=== PATIENT | female | born 1950 | race Caucasian/White ===

== ENCOUNTER → 2021-06-27 14:26 | Outpatient (CLI) | payer MEDICARE, SELFPAY ==
--- NOTE | ~2021-06-27 | CT_ITS ---
EXAMINATION: CT abdomen pelvis wo con DATE: 06/27/2021 14:50 INDICATION: TECHNIQUE: Computed tomography (CT) of the abdomen and pelvis was performed without intravenous contr ast. Automated exposure control and iterative reconstruction technique were employed. Exam dose: 847 .93 mGy-cm total exam DLP. COMPARISON: None. FINDINGS: The lung bases are clear. No pericardial or pleural effusion. Hepatic steatosis. The liver, gallbladder, bile duct, pancreas and pancreatic duct are otherwise unre markable. There are multiple splenic calcified granulomas. No splenomegaly. Stable approximately 11 m m heavily calcified splenic artery aneurysm. Normal morphology of the adrenal glands. 12 mm lower pole right renal cyst.. No urinary tract calculus or hydroureteronephrosis. There is atherosclerotic calcification of the abdominal aorta and iliac arteries and prominent calcif ication of the proximal renal arteries. No abdominal aortic aneurysm. The urinary bladder, uterus and adnexal areas are unremarkable. No intraperitoneal or retroperitoneal or pelvic mass lesion or adenopathy or ascites. There are numerous diverticula of the left colon; no CT evidence of diverticulitis. No bowel obstruct ion or intraperitoneal free air is detected. Bilateral fat-containing inguinal hernias. Small fat-containing umbilical hernia. Severe degenerative disease at L2-3. Degenerative change at the apophyseal joints of the lumbar and l umbosacral spine. No suspicious osteolytic or osteoblastic lesions are noted. IMPRESSION: Diverticulosis of the left colon; no CT evidence of diverticulitis 12 mm lower pole right renal cyst Hepatic steatosis. Reviewed, dictated and finalized at [facility]. Reviewed, dictated and finalized at location A.
== END ==
PROVIDERS: PCP Family Medicine; Visit Provider Family Medicine
DX: I72.8 Aneurysm of other specified arteries (principal); K57.30 Diverticulosis of large intestine without perforation or abscess without bleeding; N28.1 Cyst of kidney, acquired; K76.0 Fatty (change of) liver, not elsewhere classified
CPT/HCPCS: 74176

== ENCOUNTER → 2021-07-21 13:53 | Outpatient (CLI) | payer MEDICARE, SELFPAY ==
--- NOTE | ~2021-07-21 | MR_ITS ---
EXAMINATION: MR lumbar spine wo con EXAM DATE: 07/21/2021 14:56 INDICATION: R29.898 - Other symptoms and signs involving the musculos... . Low back pain. TECHNIQUE: Multi-sequential, multiplanar MR images of the lumbar spine were obtained without contrast . Sagittal T1, T2, T2 fat saturation images. Axial T2 weighted images. Comparison is made to prior examination from 08/06/2012. FINDINGS: There is moderate disc disease T10-L2, mild at the levels below. 2 mm retrolisthesis L2 on L3 and L1 on L2. The vertebral bodies are otherwise aligned. Mild lumbar levoscoliosis. There are no suspicious marrow signal abnormalities. Paraspinal soft tissue is unremarkable. The conus medullaris terminates at the L1/2 level and has normal signal intensity and morphology. Level by level evaluation: T12-L1: There is a minimal diffuse disc bulge. Facet arthropathy: None. Neural foraminal stenosis: No stenosis. Central canal stenosis: No stenosis. L1-L2: There is a minimal diffuse disc bulge. Facet arthropathy: Mild. Neural foraminal stenosis: No stenosis. Central canal stenosis: No stenosis. L2-L3: There is a mild to moderate diffuse disc bulge. Facet arthropathy: Mild to moderate. Neural foraminal stenosis: Mild to moderate right, mild left. Central canal stenosis: Mild. L3-L4: There is a mild diffuse disc bulge. Facet arthropathy: Moderate. Neural foraminal stenosis: Minimal bilateral. Central canal stenosis: Mild. L4-L5: There is a mild diffuse disc bulge. Facet arthropathy: Moderate left, mild to moderate right. Neural foraminal stenosis: Mild to moderate left, mild right. Central canal stenosis: Mild. L5-S1: There is a mild diffuse disc bulge. Facet arthropathy: Moderate to severe left, moderate right. Neural foraminal stenosis: Minimal left. Central canal stenosis: No stenosis. IMPRESSION: Overall moderate lumbar spondylosis, progression compared to 2012. Reviewed, dictated and finalized at location A. IMPRESSION: Overall moderate lumbar spondylosis, progression compared to 2013.
== END ==
PROVIDERS: PCP Family Medicine; Visit Provider Family Medicine
DX: R29.898 Other symptoms and signs involving the musculoskeletal system (principal); M47.896 Other spondylosis, lumbar region
CPT/HCPCS: 72148

== ENCOUNTER → 2021-08-22 13:27 | Outpatient (CLI) | payer MEDICARE, SELFPAY ==
--- NOTE | ~2021-08-22 | MM_ITS ---
EXAMINATION: MM screening chelsy BI w adwoa HISTORY: Screening TECHNIQUE: Craniocaudal and mediolateral oblique 3-D tomosynthesis images were obtained and synthetic 2-D images were generated. CAD analysis was submitted and interpreted. COMPARISON: 08/05/2014 BREAST PARENCHYMAL COMPOSITION: Breast composed of scattered areas of fibroglandular density FINDINGS: There is no evidence of suspicious mass, calcification, or architectural distortion to sugg est malignancy in either breast. There has been no suspicious interval change. IMPRESSION: 1. No mammographic evidence of malignancy. 2. Recommend routine screening mammography in one year. BI-RADS Category 1: Negative Reviewed, dictated and finalized at location A.
== END ==
PROVIDERS: PCP Family Medicine; Visit Provider Family Medicine
DX: Z12.31 Encounter for screening mammogram for malignant neoplasm of breast (principal)
CPT/HCPCS: 77063; 77067

== ENCOUNTER → 2021-09-19 13:35 | Outpatient (CLI) | payer MEDICARE, SELFPAY ==
--- NOTE | ~2021-09-19 | DEXA_ITS ---
Bone Density Report Name: GUANAKITO SOLIS Age: 71 Sex: Female Ethnicity: White Date of : 1950 Indication: postmenopausal; screening for osteoporosis; Referring Provider: MELIDA HAWTHORNE Study: Bone densitometry was performed. Exam Date: September 19, 2021 Accession number: [id number] Bone Density: Region BMD T-score Z-score Classification AP Spine (L1-L4) 1.117 0.6 2.9 Normal Femoral Neck (Left) 0.684 -1.5 0.5 Osteopenia Total Hip (Left) 0.849 -0.8 0.9 Normal Femoral Neck (Right) 0.705 -1.3 0.7 Osteopenia Total Hip (Right) 0.871 -0.6 1.1 Normal Total Hip Mean 0.860 -0.7 1.0 Normal World Health Organization criteria for BMD impression classify patients as: Normal (T-score at or above -1.0), Osteopenia (T-score between -1.0 and -2.5), or Osteoporosis (T-score at or below -2.5). 10-year Fracture Risk(1): Major Osteoporotic Fracture 10% Hip Fracture 1.6% Reported Risk Factors: [place] (), Neck BMD=0.684, BMI=30.7 (1) FRAX(R) Version 3.08. Fracture probability calculated for an untreated patient. Fracture probability may be lower if the patient has received treatment. Previous Exams: Region Exam Age BMD T-score BMD Change BMD Change Date g/cm2 vs Baseline vs Previous AP Spine(L1-L4) 09/19/2021 71 1.117 0.6 0.101 0.070 08/05/2014 64 1.047 0.0 0.031* 0.031* 09/26/2006 56 1.016 -0.3 Total Hip(Left) 09/19/2021 71 0.849 -0.8 0.000 -0.003 08/05/2014 64 0.852 -0.7 0.003 0.003 09/26/2006 56 0.849 -0.8 Total Hip(Right) 09/19/2021 71 0.871 -0.6 -0.017 -0.023 08/05/2014 64 0.894 -0.4 0.007 0.007 09/26/2006 56 0.887 -0.4 *Denotes significance at 95% confidence level, LSC for AP Spine = 0.022 g/cm2, LSC for Total Hip = 0.027 g/cm2 Clinical Information Provided by Patient: Patient maximum height was 63.2 Menopause Age: 50 No regular weight bearing exercise Does not regularly consume dairy products Drinks caffeinated beverages Onset of menses at age 11 Number of children 3 Impression: The patient has low bone mass, based on the Left Femoral Neck T-score. The patient has an estimated ten-year risk of hip fracture of 1.6% and an estimated ten-year risk of major fracture of 10%, based on the WHO FRAX algorithm. No significant bone loss was observed. Discussion: BONE DENS
== END ==
PROVIDERS: PCP Family Medicine; Visit Provider Family Medicine
DX: Z78.0 Asymptomatic menopausal state (principal); M85.851 Other specified disorders of bone density and structure, right thigh; M85.852 Other specified disorders of bone density and structure, left thigh
CPT/HCPCS: 77080

== ENCOUNTER → 2021-12-13 13:55 | Outpatient (CLI) | payer MEDICARE, SELFPAY ==
--- NOTE | ~2021-12-13 | XR_ITS ---
XR foot LT min 3V DATE: 12/13/2021 14:54 INDICATION: Left foot pain TECHNIQUE: 4 views COMPARISON: None FINDINGS: Moderate plantar calcaneal enthesopathy. Slight posterior calcaneal enthesopathy. No fracture or dislocation, periosteal reaction or bone destruction is detected. Osteopenia. IMPRESSION: Calcaneal enthesopathy Osteopenia Reviewed, dictated and finalized at location B.
--- NOTE | ~2021-12-13 | XR_ITS ---
XR foot RT min 3V DATE: 12/13/2021 14:54 INDICATION: Right foot pain TECHNIQUE: 4 views COMPARISON: None FINDINGS: There is plantar calcaneal enthesopathy. Osteopenia. Mild osteoarthritis at the first metat arsophalangeal joint. No fracture or dislocation, periosteal reaction or bone destruction is detected . Anterior tibial artery calcification. IMPRESSION: Plantar calcaneal enthesopathy Mild osteoarthritis at first metatarsophalangeal joint Osteopenia Reviewed, dictated and finalized at location B.
--- NOTE | ~2021-12-13 | XR_ITS ---
XR hand BI arthritis min 3V DATE: 12/13/2021 14:55 INDICATION: Bilateral hand pain. Joint pain. Myalgia. TECHNIQUE: 4 views of each hand COMPARISON: None FINDINGS: Right hand: Polyarticular osteoarthritis is noted including joint space narrowing at the triscaphe joint, mild os teoarthritis at the first carpometacarpal, metacarpophalangeal and particularly the interphalangeal j oints, most severe at the distal interphalangeal joint of the second digit where there is virtual obl iteration of joint space and very prominent particular spurring. No fracture or dislocation, periosteal reaction or bone destruction, erosive change or chondrocalcino sis. Left hand: There is narrowing at the triscaphe joint and mild osteophyte is at the first carpometacar pal joint. There is narrowing at the carpophalangeal and interphalangeal joints with periarticular sp urring phalangeal joints, particularly the distal interphalangeal joints. No fracture or dislocation, periosteal reaction or bone destruction of the left hand. No erosive [place] ge or chondrocalcinosis. IMPRESSION: Prominent polyarticular osteoarthritis of the hands Reviewed, dictated and finalized at location B.
== END ==
PROVIDERS: PCP Family Medicine; Visit Provider Internal Medicine Rheumatology
DX: M79.10 Myalgia, unspecified site (principal); M25.50 Pain in unspecified joint
CPT/HCPCS: 73130; 73630

== ENCOUNTER → 2022-02-03 14:09 | Outpatient (CLI) | payer MEDICARE, SELFPAY ==
--- NOTE | ~2022-02-03 | MR_ITS ---
EXAMINATION: MR brain/brain stem wo con DATE: 02/03/2022 14:49 INDICATION: Unsteady gait. Fall. TECHNIQUE: Magnetic resonance imaging (MRI) of the brain and brainstem was performed without intraven ous contrast. COMPARISON: Brain MRI 11/15/2015 FINDINGS: There are scattered areas of nonspecific increased T2-weighted signal intensity in the cere bral white matter, which is within normal limits for the patient's age. There is no intracranial hemo rrhage, acute infarction, or abnormal intracranial mass lesion. The ventricles are normal in size. Th ere are likely changes of ocular lens replacement surgeries. The paranasal sinuses are clear. The mas toid air cells are normal. IMPRESSION: 1. Normal aging brain. Reviewed, dictated and finalized at location A. IMPRESSION: 1. Normal aging brain.
== END ==
PROVIDERS: PCP Family Medicine; Visit Provider Family Medicine
DX: G51.8 Other disorders of facial nerve (principal)
CPT/HCPCS: 70551

== ENCOUNTER 2022-12-19 14:19 | Emergency (ER) | payer MEDICARE, SELFPAY ==
--- NOTE | ~2022-12-19 | CT_ITS ---
EXAMINATION: CT abdomen pelvis w con DATE: 12/19/2022 21:02 INDICATION: abdominal pain TECHNIQUE: Computed tomography (CT) of the abdomen and pelvis was performed with 100 mL Omnipaque-350 intravenous contrast. Automated exposure control and iterative reconstruction technique were employe d. The dose-length product was 482.87 mGy-cm. COMPARISON: 06/27/2021. FINDINGS: Lower thorax: Small hiatal hernia. Liver: Normal. Biliary/Gallbladder: Gallbladder is normal. No bile duct dilation. Pancreas: Pancreatic atrophy. Spleen: Calcified granulomas. Adrenals:No mass. Kidneys: Right inferior pole simple cyst. Bilateral cortical scarring. No suspicious mass, stone, or hydronephrosis. GI tract: Mild distal esophageal and gastric wall edema. No small or large bowel dilation. Appendix n ot confidently visualized. Diverticulosis without diverticulitis. Mesentery/Peritoneum: No ascites, mass, or free air. Retroperitoneum: No mass. Atherosclerotic abdominal aortic and/or arterial calcifications. Stable jose cified 12 mm splenic artery aneurysm. Pelvis: Pelvic organs are within normal limits. Soft Tissues: Soft tissues and body wall unremarkable. Bones: No acute osseous finding. IMPRESSION: Mild esophagitis/gastritis. Otherwise, no acute abdominal pelvic process detected. Reviewed, dictated and finalized at location K. IMPRESSION: Mild esophagitis/gastritis. Otherwise, no acute abdominal pelvic process detect ed.
[2022-12-19 14:31] VITALS: BP 148/72; PULSE 77; RESP 12; TEMP 36.3; O2SAT 98
[2022-12-19 14:49] LABS: Basophils Percent Auto 0.1 % (0.2-1.2); Eosinophils Percent Auto 0.1 % (0-4.4); Hematocrit 34.4 % (37.0-47.0); Hemoglobin 11.7 g/dL (12.0-15.0); Immature Granulocyte Absolute 0.11 K/mm3 (0.00-0.031); Lymphocytes Absolute Auto 1.24 K/mm3 (0.9-3.2); Lymphocytes Percent Auto 11.8 % (18.3-44.2); Mean Corpuscular Hemoglobin 31.7 pg (26-34); Mean Corpuscular Volume 93.2 fl (80-100); Mean Platelet Volume 10.2 fl (7.4-10.4); Monocytes Absolute Auto 0.2 K/mm3 (0.1-0.6); Neutrophils Absolute Auto 8.9 K/mm3 (1.3-6.7); Platelet Count Result 193 k/mm3 (150-375); Red Blood Count 3.69 M/mm3 (4.2-5.4); Red Cell Distribution Width 12.9 % (11.5-14.5); White Blood Count 10.5 K/mm3 (4.5-10.0)
[2022-12-19 15:01] LABS: Alanine Aminotransferase 18 U/L (6-35); Albumin Level 3.9 g/dL (3.5-5.1); Alkaline Phosphatase 46 U/L (38-126); Anion Gap 9 mmol/L (8-16); Aspartate Amino Transferase 21 U/L (14-36); Bilirubin,Total 1.2 mg/dL (0.2-1.3); Blood Urea Nitrogen 18 mg/dL (7-17); Calcium 8.6 mg/dL (8.4-10.2); Carbon Dioxide 28 mmol/L (22-30); Chloride 98 mmol/L (98-107); Estimated CRCL calculation 42 ml/min; Estimated Glomerular Filt Rate 54; Glucose 243 mg/dL (65-110); Lipase 226 U/L (23-300); Potassium 3.7 mmol/L (3.4-5.0); Sodium 135 mmol/L (137-145)
[2022-12-19 18:27] VITALS: BP 147/68; PULSE 67; RESP 14; O2SAT 99
--- NOTE | 2022-12-19 18:41 | PC.NURSE ---
Patient called to place into exam room without response x 2. Not seen in the waiting room. Assumed to have left the ER without being seen and without notifying the staff.
[2022-12-19 19:33] VITALS: BP 230/83; PULSE 67; RESP 15; TEMP 36.9; O2SAT 100
[2022-12-19 20:20] LABS: Appearance Urine Clear (Clear); Bilirubin Urine Negative (Negative); Blood Urine Negative (Negative); Color Urine Yellow (Yellow); Glucose Urine UA Trace mg/dL (Negative); Ketones Urine Negative (Negative); Leukocyte Esterase Ur Negative LEU/UL (Negative); Nitrate Urine Negative (Negative); Protein Urine Negative (Negative); Specific Grav Ur 1.012 (1.001-1.035); Urobilinogen Urine 0.2 mg/dL (<2.0)
[2022-12-19 20:39] LABS: Add Urine Microscopic? NO
--- NOTE | 2022-12-19 21:24 | ED.GENADULT ---
HPI - General Adult General Chief complaint: Nausea/Vomiting/Diarrhea Stated complaint: DIARRHEA FOR FEW WEEKS Time Seen by Provider: 12/19/22 19:29 History of Present Illness HPI narrative: 72-year-old female with history of diarrhea for the last 3 months presents to the emergency department for evaluation of persistent diarrhea. Patient denies any associate abdominal pain. Patient states that while she has had frequent diarrhea she has not had diarrhea in the last 3 days. Patient denies any associated nausea or vomiting. Patient reports he does have pending follow-up with GI. Related Data Home Medications Medication Instructions Recorded Confirmed multivitamin (Daily Multi-Vitamin 1 tablet PO DAILY 02/26/20 12/07/22 tablet) cholecalciferol (vitamin D3) 50 50 mcg PO DAILY 05/19/22 12/07/22 mcg (2,000 unit) capsule mecobalamin (vitamin B12) 1,000 1,000 mcg PO DAILY 11/24/22 12/07/22 mcg chewable tablet ezetimibe 10 mg tablet 10 mg PO DAILY 12/07/22 12/07/22 Allergies Allergy/AdvReac Type Severity Reaction Status Date / Time adhesive Allergy Unknown Unknown Verified 12/07/22 13:14 aspartame Allergy Unknown Unknown Verified 12/07/22 13:14 aspirin Allergy Unknown Unknown Verified 12/07/22 13:14 atorvastatin Allergy Unknown urinary Verified 12/07/22 13:14 retention, muscle cramps gluten Allergy Unknown Unknown Verified 12/07/22 13:14 lactase Allergy Unknown Nausea Verified 12/07/22 13:14 lactose Allergy Unknown Nausea Verified 12/07/22 13:14 lisinopril Allergy Unknown decreased Verified 12/07/22 13:14 urine output pravastatin AdvReac Severe aches Verified 12/07/22 13:14 cephalexin AdvReac Intermediate Diarrhea Verified 12/07/22 13:14 vaccine adjuvant emulsion AdvReac Mild severe Verified 12/07/22 13:14 [id number] myalgias, [From Fluad [id number] (65 yr arthralgias, up)(PF)] fever, rigors Review of Systems Review of Systems: All systems reviewed & are unremarkable except as noted in HPI and below PMFSH Past Medical History Medical History Acute appendicitis Chronic pruritus Ganglion, right ankle and foot Family History Family History Father Acute myocardial infarction, Onset Age: 70 Other Diabetes mellitus Family history of cardiovascular disease Social History Social History (Updated 12/07/22 @ 13:16 by Myla Almanzar MA) Smoking packs per day: 0.1 Smoking cigarettes per day: 2.0 Years smoked: 25 Smoking pack-years: 2.50 Smoking status: Former smoker Tobacco type: cigarettes Alcohol intake: current Lack of Transportation: No Lack of Food: Never True Current Housing: I Have Housing Concerned About Future Housing: No Difficulty Paying Gas/Electric Bills: No Difficulty Paying for Meds: No Currently Unemployed: No Education: High School Diploma/GED Difficulty w/ Childcare or Family Care: No Exam Narrative: APPEARANCE: Well appearing, no pain, no distress, well-nourished. HEAD: normocephalic, atraumatic. EYES: PERRLA/EOMI, conjunctivae clear. NOSE: Normal no drainage NECK: Supple. No adenopathy, no masses. RESPIRATORY: Airway patent, respirations nonlabored. Clear to auscultation bilaterally, no rales, rhonchi, wheezing. CARDIOVASCULAR: Regular rate and rhythm without murmurs rubs or gallops. ABDOMINAL: Soft, nontender, nondistended, normal bowel sounds MUSCULOSKELETAL: Moves all extremities. Strength/ROM intact, No edema, No calf tenderness. NEURO: Alert. Cranial nerves II through XII intact. Grossly intact SKIN: Warm, dry. Normal Color Course Course Emergency Course: 72-year-old female present emergency department for evaluation of persistent diarrhea over the last 3 months. Patient was afebrile with a minor leukocytosis of 10.5. Patient's hemoglobin is stable. Patient had elevate
[2022-12-19 21:26] VITALS: BP 220/81; PULSE 68; RESP 15; O2SAT 98
[2022-12-19] MEDS: hydrALAZINE HCL 20 MG/ML VIAL 10 MG IV PUSH (21:30)
[2022-12-19 22:16] VITALS: BP 177/70; PULSE 69; O2SAT 98
[2022-12-19 23:39] VITALS: BP 212/69; PULSE 73; RESP 13; O2SAT 99
== END 2022-12-20 00:05 | disposition home or self-care (01) ==
PROVIDERS: Emergency Provider Emergency Medicine; PCP Family Medicine
DX: R19.7 Diarrhea, unspecified (principal); Z87.891 Personal history of nicotine dependence
CPT/HCPCS: 36415; 74177; 80053; 81003; 83690; 85025; 96374; 99284; J0360; Q9967

== ENCOUNTER 2023-01-10 11:09 | Outpatient (NON) | payer MEDICARE, SELFPAY ==
[2023-01-10 20:19] LABS: IFOB Positive Control Positive; Immunochemical Fecal Occult Bl Negative (N)
== END 2023-01-10 11:10 | disposition home or self-care (01) ==
LOC: ANHGOSHLAB 11:10
PROVIDERS: PCP Family Medicine; Visit Provider Physician Assistant
DX: R19.7 Diarrhea, unspecified (principal)
CPT/HCPCS: 82274

== ENCOUNTER 2023-01-22 13:48 | Outpatient (CLI) | payer MEDICARE, SELFPAY ==
--- NOTE | ~2023-01-22 | US_ITS ---
EXAMINATION:US venous doppler LE BI INDICATION:Abnormal laboratory studies. TECHNIQUE: Multiple grayscale, color flow and Doppler images of the right and left lower extremity de ep venous systems were obtained and reviewed. COMPARISON:No prior studies for comparison. FINDINGS: The common femoral, superficial femoral and popliteal veins demonstrate normal respiratory variation, augmentation and compressibility. Color flow is also seen within the posterior tibial, pe roneal, greater saphenous and profunda veins. IMPRESSION: 1: No lower extremity deep venous thrombosis. Reviewed, dictated and finalized at location B.
== END 2023-01-22 13:49 | disposition home or self-care (01) ==
PROVIDERS: PCP Family Medicine; Visit Provider Physician Assistant
DX: R79.89 Other specified abnormal findings of blood chemistry (principal)
CPT/HCPCS: 93970

== ENCOUNTER 2023-02-15 11:31 | Outpatient (RCR) | payer MEDICARE, SELFPAY | END 2023-05-16 23:59 | disposition home or self-care (01) | LOC: ANHAUDASC 11:31 | PROVIDERS: PCP Family Medicine; Visit Provider Family Medicine | DX: Z46.1 Encounter for fitting and adjustment of hearing aid (principal) | CPT/HCPCS: 92593 ==

== ENCOUNTER 2024-01-02 13:30 | Outpatient (CLI) | payer MEDICARE, SELFPAY ==
--- NOTE | 2024-01-02 13:42 | ECHO_ITS ---
Patient Info Name: Savana Motta Age: 73 years : 1950 Gender: Female Ht: 62 in Wt: 192 lbs BSA: 1.99 m2 HR: 57 bpm BP: 169 / 74 mmHg Technical Quality: Fair Exam Date: 01/02/2024 2:01 PM Exam Location: Echo Lab Patient Status: Outpatient Admit Date: 01/02/2024 Staff Ordering Physician: Lane Ruiz APRN Deposition Reporter: Belkis Quiñones RDCS Attending Provider: Lane Ruiz APRN Referring Physician: Sara RAMAN; Exam Type: CA echo doppler color flow Study Info Indications - Abnormal weight gain Complete two-dimensional, color flow and Doppler transthoracic echocardiogram is performed. Summary 1. Complete two-dimensional, color flow and Doppler transthoracic echocardiogram is performed. 2. Left ventricular chamber dimension is normal. 3. Left ventricular systolic function is normal, estimated at 65-70%. 4. There is moderate concentric increased left ventricular wall thickness. 5. The left ventricular diastolic function is grade I diastolic dysfunction. 6. E/e' 17 is elevated. 7. There is mild aortic valve sclerosis. 8. There is trace mitral valve regurgitation. 9. No pulmonary hypertension, estimated pulmonary arterial systolic pressure is 27 mmHg. Left Ventricle E/e' 17 is elevated. Left ventricular chamber dimension is normal. Left ventricular systolic function is normal, estimated at 65-70%. There is moderate concentric increased left ventricular wall thickness. The left ventricular diastolic function is grade I diastolic dysfunction. Right Ventricle Right ventricular systolic function is normal and with normal TAPSE 2.1 cm. Right ventricular chamber dimension is normal. Left Atria Left atrial chamber dimension is normal. Right Atria Right atrial chamber dimension is normal. Aortic Valve The aortic valve is trileaflet. There is mild aortic valve sclerosis. There is no aortic valve stenosis. There is no aortic valve regurgitation. Pulmonic Valve There is no pulmonic regurgitation. Mitral Valve There is no mitral valve stenosis. There is trace mitral valve regurgitation. Tricuspid Valve There is no tricuspid valve regurgitation. No pulmonary hypertension, estimated pulmonary arterial systolic pressure is 27 mmHg. Pericardium/Pleural There is no pericardial effusion. Inferior Vena Cava Normal inferior vena cava with >50% collapse upon inspiration consistent with normal right atrial pressure, 5 mmHg. Aorta The aortic root size at the sinus of Valsalva is normal. Left Ventricular Outflow Tract Name Value Normal LVOT 2D LVOT Diameter 2.0 cm LVOT Doppler LVOT Peak Gradient 3 mmHg LVOT Mean Gradient 2 mmHg LVOT VTI 25 cm LVOT VTI/AV VTI Ratio 0.7 LVOT Stroke Volume 75 ml LVOT CO 3.8 l/min LVOT CI 1.9 l/min/m2 Pulmonic Valve Name Value Normal RVOT Doppler ------
== END 2024-01-02 13:31 | disposition home or self-care (01) ==
LOC: ANHCARD 13:32
PROVIDERS: PCP Family Medicine; Visit Provider Student in an Organized Health Care Education/Training Program
DX: M79.89 Other specified soft tissue disorders (principal); R01.1 Cardiac murmur, unspecified; I10 Essential (primary) hypertension
CPT/HCPCS: 93306